=== PATIENT | female | born 1975 | race Caucasian/White ===

== ENCOUNTER 2017-09-12 21:37 | Observation (INO) | payer BC, SELFPAY ==
[2017-09-12 21:38] VITALS: BP 128/37; PULSE 95; RESP 15; TEMP 37.4; O2SAT 97; BMI 25.1
[2017-09-12 21:49] VITALS: O2SAT 98
[2017-09-12 22:13] VITALS: O2SAT 98
--- NOTE | 2017-09-12 22:13 | EKG12_ITS ---
Test Reason : CP Blood Pressure : / mmHG Vent. Rate : 078 BPM Atrial Rate : 077 BPM P-R Int : 000 ms QRS Dur : 088 ms QT Int : 390 ms P-R-T Axes : 000 026 004 degrees QTc Int : 444 ms Accelerated Junctional rhythm Abnormal ECG No previous ECGs available Confirmed by PAULINE CLIFTON, ZITA ([id number]), loan expeditor LLUVIA TESFAYE ([id number]) on 09/15/2017 9:43:56 AM Referred By: TRUNG Confirmed By:ZITA CARPENTER MD
--- NOTE | 2017-09-12 22:13 | RAD_ITS ---
STUDY: X-RAY CHEST REASON FOR EXAM: Female, 41 years old. Chest pain. TECHNIQUE: AP portable COMPARISON: None. FINDINGS: The lungs are mildly hyperinflated. There is no focal consolidation. Normal size heart. Normal mediastinum and kandice. Normal visualized pulmonary arteries. Normal visualized aortic arch and descending thoracic aorta. Normal visualized thoracic spine. Normal visualized ribs, clavicles, and shoulders. There is no demonstrated abnormality of the visualized soft tissue structures of the upper abdomen. RAD/Chest 1 View (Portable) IMPRESSION: Hyperinflated lungs may reflect underlying COPD. Electronically Signed: Lisa Barragan MD at 22:57 EDT Tel , Service support ,
--- NOTE | 2017-09-12 22:20 | ED.RN ---
NO OLD EKGS IN MUSE.
[2017-09-12] MEDS: Aspirin 81 MG TAB.CHEW 324 MG PO (22:21)
[2017-09-12 22:29] LABS: Absolute Neutrophil Count 4.8 X10^3/uL (2.0-7.7); Basophil# 0.03 X10^3/uL; Basophil% 0.4 % (0-1); Eosinophils% 2.5 % (0-5); Hematocrit 38.7 % (37-47); Lymphocyte % 26.6 % (19-41); Mean Corp Hgb Conc 33.6 g/gl (32-36); Mean Corpuscular Volume 86.4 fL (81-99); Mean Platelet Vol. 9.2 fl (6.2-12.0); Monocyte# 0.75 X10^3/uL; Monocyte% 9.5 % (0-10); Neutrophil # 4.81 X10^3/uL (2.7-7.7); Neutrophil % 60.9 % (47-70); Platelet Count 351 K/mm3 (150-450); RBC Distribution Width CV 14.4 % (11.6-14.6); RBC Distribution Width SD 44.9 fl (35.1-43.9); Red Blood Count 4.48 M/mm3 (4.2-5.4); White Blood Count 7.9 K/mm3 (4.4-11.0)
[2017-09-12 22:30] LABS: POSITIVE COUNT NO; POSITIVE DIFFERENTIAL NO; POSITIVE MORPHOLOGY NO
[2017-09-12 22:51] LABS: Anion Gap 8 (5-15); BUN 13 mg/dL (7-18); BUN/Creat Ratio 21.2 RATIO (10-20); Calcium,Total 8.4 mg/dL (8.5-10.1); Chloride 111 mmol/L (98-107); Creatinine, Serum 0.61 mg/dL (0.55-1.02); EST Glomerular Filtration Rate 113 mL/min (>60); Est Glom Filt Rate - Afr Amer 136 mL/min (>60); Estimated Creatinine Clearance 132.91 ml/min; Glucose 102 mg/dL (74-106); Potassium 3.9 mmol/L (3.5-5.1); Sodium Level 140 mmol/L (136-145); Thyroid Stim Hormone (TSH) 4.71 uIU/mL (0.358-3.74)
[2017-09-12 22:56] VITALS: PULSE 68; RESP 18; O2SAT 100
[2017-09-12 23:00] VITALS: PULSE 84; RESP 20; O2SAT 100
--- NOTE | 2017-09-12 23:35 | ED.VISSUMM ---
- ER Visit Summary Date of Service: 09/12/17 Chief Complaint: Chest pain History of Present Illness: The patient is a 41 F with chest pain today. Pain came on gradually. It radiates to her left chest and left upper extremity. Worse with exertion. She had some associated shortness of breath. She had an outpatient ECG and was scheduled for an outpatient echocardiogram and stress test 2 days from now. Patient denies any history of coronary disease. She thinks she has a history of high cholesterol. She denies any history of DVT or PE. She is a former smoker. Patient has a history of tremor, speech changes, and other neurologic symptoms. She has had a head CT, MRIs, and LP. Her workup did not reveal any answers 60 and she is following up soon as an outpatient with neurology. She is not having any new neurologic symptoms right now. Physical Examination: Vital signs unremarkable. Afebrile. Patient tearful but otherwise alert and oriented. HEENT exam unremarkable. Heart regular rate and rhythm. Lungs clear. Abdomen soft. Skin appears normal. Calves soft and supple. Pulses strong and equal. Test Results: EKG showed sinus rhythm at a rate of 100 with no sign of ischemia or infarction. CBC, BMP, troponin, TSH all unremarkable. COPD showed chronic changes but nothing acute. Emergency Department Course and Treatment: Patient has multiple medical complaints and ongoing issues. She is also tearful and very anxious. She presents today for chest pain with shortness of breath. This is her new symptom. I do not believe it is directly related to her neurologic symptoms. EKG, labs, chest x-ray all unremarkable. Patient received aspirin, morphine, and Zofran. WARREN 1, HEART 2. Given her continued pain and symptoms, I do not believe she should not wait for outpatient testing scheduled in 2 days. I spoke with the hospitalist to admit. Treatment Plan: As above Disposition: Admission Impression: 1. Chest pain This note was generated with [employer] dictation software. It may contain incorrect words, spelling, and punctuation that were not noted in review of the chart prior to signing ED Disposition - Plan for ED Patient: Chief Complaint: Chest Pain Referrals: [facility] Doctor,Out of [Primary Care Provider] -
[2017-09-12] MEDS: Morphine 4 MG/ML Syringe IV (23:54)
[2017-09-12] MEDS: Ondansetron 4 MG/2 ML Vial IV (23:55)
[2017-09-12 23:56] VITALS: BP 179/118; PULSE 76; RESP 18; O2SAT 100
[2017-09-13] VITALS (14 sets, daily range): BP systolic 97–148; BP diastolic 41–73; PULSE 66–82; RESP 16–20; TEMP 36.4–36.9; O2SAT 97–100; BMI 27.2
--- NOTE | 2017-09-13 | HP.PCM_ITS ---
Problem List (1) Chest pain Status: Acute (2) Hypothyroid Status: Acute History of Present Illness Date of Admission: 09/12/17 Chief Complaint: Chest pain The patient is a 41 year old female admitted for chest pain. She had chest pain a few days ago and has been evaluated by her PCP. She was arranged to have an ECHO and stress test outpt on Thursday. However, today she had sudden worsening of chest pain. Pain is substernal and sharp. Pain is worse with exertion. Pain is severe and episodic. The intensity and frequency of the pain have increased. Rest improved the pain. Pain also radiated to the back and down the left arm. She went to the ED for further evaluation of chest pain. She has h/o tremor and change in her voice. She has extensive workup at the [facility] and neurology. Workup includes CT, MRI and LPs. 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 Denies: Palpitations Respiratory: Denies: Cough, Shortness of breath at rest, Sputum production Gastrointestinal: Denies: Abdominal Pain, Nausea, Vomiting Genitourinary: Denies: Dysuria Musculoskeletal: Denies: Joint Pain, Joint Tenderness Skin: Denies: Rash, Wounds Neurological: Denies: Numbness, Tingling, Focal weakness Psychiatric: Denies: Anxiety, Depression, Homicidal Ideations, Suicidal Ideations Hematologic/ Lymphatic: Denies: Easy Bruising, Easy Bleeding VTE Information - Inpt Only VTE Present on Admission: No VTE Mechan Device Prophylaxis: SCD's VTE Pharm Prophylaxis ordered?: Yes Patient Problems: Active and Suspected Problems Chest pain (Acute) Hypothyroid (Acute) - Physical Exam General: Alert, Oriented x3, Cooperative HEENT: Atraumatic, PERRLA, EOMI, Normocephalic Neck: Supple, No JVD, Negative Carotid Bruits Lungs: Clear to auscultation, Normal air movement Cardiovascular: Regular rate, No murmurs Abdomen: Bowel Sounds Present, Soft, Non Tender Extremities: No edema, Capillary Refill Less than 3 Seconds Skin: No rashes, No breakdown Musculoskeletal: No Tenderness to Palpation of Joints or Extremities Neurological: Cranial nerves II-XII grossly intact Psych/Mental Status: Normal Affect, Appropriate Vital Signs Temp Pulse Resp BP Pulse Ox 99.3 F H 76 18 179/118 H 100 09/12/17 21:38 09/12/17 23:56 09/12/17 23:56 09/12/17 23:56 09/12/17 23:56 Oxygen Flow Rate (L/min) 2 Oxygen Delivery Method Nasal Cannula Weight: 81.647 kg Body Mass Index (BMI) 25.1 Laboratory Tests Past 24 Hrs 09/12/17 09/12/17 22:05 22:05 WBC 7.9 RBC 4.48 Hgb 13.0 Hct 38.7 MCV 86.4 MCH 29.0 MCHC 33.6 RDW 14.4 RDW Differential 44.9 H Plt Count 351 MPV 9.2 Immature Gran % (Auto) 0.100 Neut % (Auto) 60.9 Lymph % (Auto) 26.6 [place] % (Auto) 9.5 Eos % (Auto) 2.5 Baso % (Auto) 0.4 Absolute Neuts (auto) 4.8 Absolute Lymphs (auto) 2.10 Total Counted Not Reportable Sodium 140 Potassium 3.9 Chloride 111 H Carbon Dioxide 21.0 Anion Gap 8 BUN 13 Creatinine 0.61 Estim Creat Clear Calc 132.91 Est GFR (MDRD) Af Amer 136 Est GFR (MDRD) Non-Af 113 BUN/Creatinine Ratio 21.2 H Glucose 102 Calcium 8.4 L Troponin I < 0.015 TSH 4.71 H Assessment/Plan All Active Problems Chest pain (Acute) Hypothyroid (Acute) 41 year old female admitted for chest pain. 1) Chest pain: Heart score 2 Will get ECHO and stress test in AM. Serial trops. Will get FLP. Will start coreg, lipitor, and ASA. If persistent, especially if pain continues to radiate to the back and associated with back pain, may consider CTA to r/o dissection at that time. 2) Hypothyroid: TSH 4.4 Will start synthroid. 3) Prophylasix: SCD / heparin.
[2017-09-13] MEDS: 0.9% NaCl Peripheral Flush Adult/Peds IV ×4 (01:27→17:45)
[2017-09-13] MEDS: Morphine 4 MG/ML Syringe IV (03:37)
[2017-09-13 04:34] LABS: Amphetamine Urine VISTA NEGATIVE (<1000 ng/mL); Barbiturate Urine VISTA NEGATIVE (< 200 ng/mL); Benzodiazepine Urine VISTA NEGATIVE (< 200 ng/mL); Cocaine Urine VISTA NEGATIVE (< 300 ng/mL); Ecstacy Urine VISTA NEGATIVE (< 500 ng/mL); Methadone Urine VISTA NEGATIVE (< 300 ng/mL); PCP Urine VISTA NEGATIVE (< 25 ng/mL); THC Urine VISTA NEGATIVE (< 50 ng/mL); Vista UDS pH Range 6
[2017-09-13 04:57] LABS: Hemoglobin 12.3 g/dl (12.0-15.0); Mean Corp Hgb Conc 33.2 g/gl (32-36); Mean Corpuscular Hgb 29.4 pg (27.0-32.0); Mean Corpuscular Volume 88.5 fL (81-99); Mean Platelet Vol. 9.1 fl (6.2-12.0); Platelet Count 309 K/mm3 (150-450); RBC Distribution Width CV 14.5 % (11.6-14.6); RBC Distribution Width SD 46.5 fl (35.1-43.9); Red Blood Count 4.18 M/mm3 (4.2-5.4); White Blood Count 6.3 K/mm3 (4.4-11.0)
[2017-09-13 04:59] LABS: Scan Indicated on CBC? Y/N NO
[2017-09-13] MEDS: Levothyroxine 25 MCG TABLET PO (05:03)
[2017-09-13] MEDS: Heparin Injection (Vial) 5,000 UNIT/ML VIAL 5000 UNIT SC (05:03)
[2017-09-13 05:12] LABS: BNP,B-Type NATRIURETIC PEPTIDE 7.4 pg/mL (0-100)
[2017-09-13 05:26] LABS: D-Dimer Quantitative (DVT/PE) < 0.27 FEU/ug/m (0.27-0.49)
[2017-09-13 05:35] LABS: AST(SGOT) 11 U/L (15-37); Alanine Aminotransfer ALT/SGPT 22 U/L (13-56); Albumin, Serum 3.1 g/dL (3.2-5.0); Alkaline Phosphatase 62 U/L (45-117); Anion Gap 6 (5-15); BUN 14 mg/dL (7-18); BUN/Creat Ratio 23.8 RATIO (10-20); Calcium,Total 7.9 mg/dL (8.5-10.1); Chloride 112 mmol/L (98-107); Cholesterol 161 mg/dL (200); Creatinine, Serum 0.59 mg/dL (0.55-1.02); EST Glomerular Filtration Rate 118 mL/min (>60); Est Glom Filt Rate - Afr Amer 143 mL/min (>60); Estimated Creatinine Clearance 137.42 ml/min; Glucose 107 mg/dL (74-106); High Density Lipoprotein 56 mg/dL; Potassium 4.5 mmol/L (3.5-5.1); Protein, Total 6.1 g/dL (6.4-8.2); Sodium Level 145 mmol/L (136-145); Thyroid Stim Hormone (TSH) 4.13 uIU/mL (0.358-3.74); Triglycerides 49 mg/dL; Very Low Density Lipoprotein 10 mg/dL (5-40)
[2017-09-13 08:10] LABS: T4 Free Direct 1.17 ng/dL (0.76-1.46)
[2017-09-13] MEDS: HYDROcodone Bitartrate/Apap 5/325 Tablet PO ×3 (08:11→21:54)
[2017-09-13] MEDS: Ondansetron 4 MG/2 ML Vial IV (08:35)
[2017-09-13] MEDS: 0.9% Normal Saline 1,000 ML 100 ML IV ×2 (08:37→17:49)
[2017-09-13] MEDS: Aspirin E.C. 81 MG Tablet PO (08:37)
[2017-09-13] MEDS: Carvedilol 3.125 MG TABLET PO ×2 (08:37→21:52)
--- NOTE | 2017-09-13 10:52 | PCM.PROGNOTE ---
Patient Problems: Active and Suspected Problems Chest pain (Acute) Hypothyroid (Acute) Subjective: Patient seen and examined. She has multiple complaints on assessment. States she continues to have chest pain intermittently. She states nothing makes it better or worse. Patient states she has had ongoing symptoms including upper extremity tremors, weakness, headache, loss of voice, urinary incontinence. She states she has seen a neurologist at [facility] in [facility] for these issues. She states she has not had any official diagnosis. She states these initially occurred approximately a month ago and she is unable to work due to her symptoms. - Physical Exam General: Alert, Oriented x3, Cooperative HEENT: Atraumatic, PERRLA, EOMI, Normocephalic Neck: Supple, No JVD, Negative Carotid Bruits Lungs: Clear to auscultation, Normal air movement Cardiovascular: Regular rate, Regular Rhythm, Normal S1, Normal S2, No murmurs Abdomen: Bowel Sounds Present, Soft, Non Tender, Non-Distended Extremities: No clubbing, No cyanosis, No edema, Capillary Refill Less than 3 Seconds Skin: No rashes, No breakdown Musculoskeletal: No Tenderness to Palpation of Joints or Extremities Neurological: Cranial nerves II-XII grossly intact, Neuro grossly intact, - - Right upper extremity tremor noted. Psych/Mental Status: Restless Vital Signs Temp Pulse Resp BP Pulse Ox 97.9 F 82 20 H 108/50 L 99 09/13/17 08:15 09/13/17 08:15 09/13/17 08:15 09/13/17 08:15 09/13/17 08:15 Oxygen Flow Rate (L/min) 2 Oxygen Delivery Method Nasal Cannula Weight: 88.5 kg Body Mass Index (BMI) 27.2 Intake and Output for Last 24 Hours 09/11/17 09/12/17 09/13/17 23:59 23:59 23:59 Intake Total 100 / 100 Balance 100 / 100 Laboratory Tests Past 24 Hrs 09/13/17 09/13/17 09/13/17 01:07 03:20 04:31 WBC 6.3 RBC 4.18 L Hgb 12.3 Hct 37.0 MCV 88.5 MCH 29.4 MCHC 33.2 RDW 14.5 RDW Differential 46.5 H Plt Count 309 MPV 9.1 D-Dimer Quant (PE/DVT) Sodium Potassium Chloride Carbon Dioxide Anion Gap BUN Creatinine Estim Creat Clear Calc Est GFR (MDRD) Af Amer Est GFR (MDRD) Non-Af BUN/Creatinine Ratio Glucose Calcium Total Bilirubin AST ALT Alkaline Phosphatase Troponin I < 0.015 B-Natriuretic Peptide Total Protein Albumin Globulin Albumin/Globulin Ratio Triglycerides Cholesterol LDL Cholesterol VLDL Cholesterol HDL Cholesterol TSH Free T4 Urine Opiates Screen POSITIVE H Urine Methadone Screen NEGATIVE Ur Barbiturates Screen NEGATIVE Ur Phencyclidine Scrn NEGATIVE Ur Amphetamines Screen NEGATIVE U Methamphetamin-MDMA NEGATIVE U Benzodiazepines Scrn NEGATIVE Urine Cocaine Screen NEGATIVE U Cannabinoids Screen NEGATIVE Ur Drug Screen Comment 09/13/17 09/13/17 09/13/17 04:31 04:31 04:31 WBC RBC Hgb Hct MCV MCH MCHC RDW RDW Differential Plt Count MPV D-Dimer Quant (PE/DVT) < 0.27 L Sodium 145 Potassium 4.5 Chloride 112 H Carbon Dioxide 27.0 Anion Gap 6 BUN 14 Creatinine 0.59 Estim Creat Clear Calc 137.42 Est GFR (MDRD) Af Amer 143 Est GFR (MDRD) Non-Af 118 BUN/Creatinine Ratio 23.8 H Glucose 107 H Calcium 7.9 L Total Bilirubin 0.60 AST 11 L ALT 22 Alkaline Phosphatase 62 Troponin I B-Natriuretic Peptide 7.4 Total Protein 6.1 L Albumin 3.1 L Globulin 3.0 Albumin/Globulin Ratio 1.0 Triglycerides 49 Cholesterol 161 LDL Cholesterol 95 VLDL Cholesterol 10 HDL Cholesterol 56 TSH 4.13 H Free T4 Urine Opiates Screen Urine Methadone Screen Ur Barbiturates Screen Ur Phencyclidine Scrn Ur Amphetamines Screen U Methamphetamin-MDMA U Benzodiazepines Scrn Urine Cocaine Screen U Cannabinoids Screen Ur Drug Screen Comment 09/13/17 09/13/17 04:31 04:31 WBC RBC Hgb Hct MCV MCH MCHC RDW RDW Differential Plt Count MPV D-Dimer Quant (PE/DVT) Sodium Potassium Chloride Carbon Dioxide Anion Gap BUN Creatinine Estim Creat Clear Calc Est GFR (MDRD) Af Amer Est GFR (MDRD) Non-Af BUN/Creatinine Ratio Glucose Calcium Total Bilirubin AST ALT Alkaline Phosphatase Troponin I < 0.015 B-Natriuretic Peptide Total Protein Albumin Globulin Albumin/Globulin Ratio Triglycerides Cholesterol LDL Cholesterol VLDL Cholesterol HDL Cholesterol TSH Free T4 1.17 Urine Opiates Screen Urine Methadone Screen Ur Barbiturates Screen Ur Phencyclidine Scrn Ur Amphetamines Screen U Methamphetamin-MDMA U Benzodiazepines Scrn Urine Cocaine Screen U Cannabinoids Screen Ur Drug Screen Comment Medical Necessity - Tobacco Use Smoking Status: Former smoker Assessment/Plan All Active Problems Chest pain (Acute) Hypothyroid (Acute) Patient is a 41-year-old female admitted 09/12/2017 due to chest pain. She has no previous medical history and is not on any daily medications. 1. Chest pain-troponin negative. Patient was scheduled for stress test and echocardiogram by her primary care physician. She came to the hospital beforehand due to continued chest pain. EKG without evidence of ischemia. Stress test and echocardiogram in a.m. 2. Multiple neurologic complaints-patient has been seen at multiple different facilities and by 2 different neurologist over the past month for multiple complaints including neck pain, headaches, numbness and tingling of bilateral extremities, bilateral upper extremity tremors, weakness, urinary incontinence. Records reviewed at outside facilities via [facility]. Initially saw a neurologist at [facility] followed by a neurologist at [facility], Dr. Moreno. Progress notes by Dr. Moreno reviewed who suggested a psychogenic etiology of symptoms. He did refer her to a movement specialist for tremors. She was diagnosed with Montilla's palsy at some point in the past month for mouth droop and was placed on prednisone. She states this has resolved. Per outside facility reports, patient had spinal tap which showed spinal fluid protein of 171.5 with only 4 white cells. No other abnormalities identified. Patient has had multiple imaging including CT and MRIs which did not show any evidence explaining etiology of her symptoms. MRI of brain 08/25/2017 showed normal MRI of the brain. MRI of lumbar spine 08/26/2017 showed multilevel degenerative changes, generally mild and without stenosis. Mild posterior disc bulges with slight superimposed central extrusion at L2-L3, L3-L4 and L4-L5. Most prominent at L4-L5 where there was a noted 9 mm extrusion extending above the disc space in the midline. None of these extrusions appear to significantly impinge any of the descending or exiting nerve roots. Mild lateral recess and left neural foraminal narrowing at L4-L5. MRI of cervical spine 08/26/2017 showed slight reversal of the upper cervical lordosis. Individual vertebral bodies intact. Mild disc desiccation and disc space narrowing, mainly at C5-C6. No abnormality noted within the cervical spinal cord. Overall, very mild degenerative disc and uncovertebral disease, no stenosis at any level. PT/OT eval. consult neurology for further recommendations although I do suspect this is psychogenic in nature. Behavioral health consult. 3. Subclinical hypothyroidism-TSH 4.1. Free T4 1.1. Do not recommend Synthroid at this time. Recommend outpatient follow-up. DVT prophylaxis-Lovenox subcu. This patient was seen by MILLICENT Figueroa under the supervision of Dr. Mays.
[2017-09-13 12:02] LABS: Magnesium 2.2 mg/dL (1.6-2.6)
[2017-09-13] MEDS: Ketorolac 15 MG/ML Vial IV (17:45)
[2017-09-13] MEDS: Atorvastatin Calcium 20 MG Tablet PO (21:52)
[2017-09-14 03:21] VITALS: PULSE 68
[2017-09-14] MEDS: 0.9% Normal Saline 1,000 ML 100 ML IV (03:46)
[2017-09-14 03:50] VITALS: BP 118/86; PULSE 75; RESP 16; TEMP 36.4; O2SAT 95
[2017-09-14] MEDS: HYDROcodone Bitartrate/Apap 5/325 Tablet PO (03:54)
[2017-09-14 05:36] LABS: Absolute Lymphocyte Count 1.31 X10^3/ul (0.83-4.51); Absolute Neutrophil Count 3.1 X10^3/uL (2.0-7.7); Basophil# 0.03 X10^3/uL; Basophil% 0.6 % (0-1); Eosinophil# 0.15 X10^3/uL; Hematocrit 36.9 % (37-47); Lymphocyte # 1.31 X10^3/ul (4.0); Lymphocyte % 25.9 % (19-41); Mean Corp Hgb Conc 32.5 g/gl (32-36); Mean Corpuscular Hgb 29.1 pg (27.0-32.0); Mean Corpuscular Volume 89.3 fL (81-99); Monocyte# 0.46 X10^3/uL; Monocyte% 9.1 % (0-10); Neutrophil # 3.09 X10^3/uL (2.7-7.7); Neutrophil % 61.2 % (47-70); Platelet Count 303 K/mm3 (150-450); RBC Distribution Width CV 14.2 % (11.6-14.6); RBC Distribution Width SD 46.1 fl (35.1-43.9); Red Blood Count 4.13 M/mm3 (4.2-5.4); White Blood Count 5.1 K/mm3 (4.4-11.0)
[2017-09-14 05:38] LABS: Prothrombin Time (Protime)PT. 13.1 SECONDS (11.7-14.9)
[2017-09-14 05:39] LABS: Partial Thromboplast Time 26.9 Seconds (24.1-36.2)
[2017-09-14] MEDS: Aspirin E.C. 81 MG Tablet PO (05:46)
[2017-09-14 05:55] LABS: Anion Gap 6 (5-15); BUN 12 mg/dL (7-18); Calcium,Total 8.2 mg/dL (8.5-10.1); Chloride 109 mmol/L (98-107); Creatinine, Serum 0.52 mg/dL (0.55-1.02); EST Glomerular Filtration Rate 136 mL/min (>60); Est Glom Filt Rate - Afr Amer 165 mL/min (>60); Estimated Creatinine Clearance 155.92 ml/min; Glucose 95 mg/dL (74-106); Potassium 4.6 mmol/L (3.5-5.1); Sodium Level 144 mmol/L (136-145)
--- NOTE | 2017-09-14 05:55 | EKG12_ITS ---
Test Reason : AM EKG Blood Pressure : / mmHG Vent. Rate : 076 BPM Atrial Rate : 076 BPM P-R Int : 140 ms QRS Dur : 090 ms QT Int : 396 ms P-R-T Axes : 047 032 027 degrees QTc Int : 445 ms Normal sinus rhythm Normal ECG When compared with ECG of 13-SEP-2017 01:17, MANUAL COMPARISON REQUIRED, DATA IS UNCONFIRMED Confirmed by PAULINE CLIFTON, ZITA ([id number]), proposal editor LLUVIA TESFAYE ([id number]) on 09/15/2017 9:46:32 AM Referred By: DR ECHEVARRIA Confirmed By:ZITA CARPENTER MD
[2017-09-14 06:14] VITALS: PULSE 63
[2017-09-14 06:26] LABS: POSITIVE COUNT NO; POSITIVE DIFFERENTIAL NO; POSITIVE MORPHOLOGY NO
[2017-09-14 09:15] VITALS: BP 104/48; PULSE 71; RESP 16; TEMP 36.6; O2SAT 97
[2017-09-14] MEDS: Acetaminophen 325 MG Tablet 650 MG PO (09:22)
[2017-09-14] MEDS: Ondansetron 4 MG/2 ML Vial IV (09:23)
[2017-09-14] MEDS: Carvedilol 3.125 MG TABLET PO (09:23)
--- NOTE | 2017-09-14 10:08 | CON.PCM_ITS ---
Reason for Consult History of Present Illness: The patient is a 41 year old F right handed with multple complaints including tingling, headaches, speech abnormalities, insomnia. reports had abnormal spinal tap (elevated protein as below). seeing Dr Alexis Moreno in [facility] , having another LP on thursday, two days from now. reports tremor in left arm startedd 2.[address] Moreno aware. report hot tub helps. quit tob 1.5 months ago. denies etoh and drugs. per hospitalists notes:Multiple neurologic complaints-patient has been seen at multiple different facilities and by 2 different neurologist over the past month for multiple complaints including neck pain, headaches, numbness and tingling of bilateral extremities, bilateral upper extremity tremors, weakness, urinary incontinence. Records reviewed at outside facilities via [facility]. Initially saw a neurologist at [place] followed by a neurologist at [facility], Dr. Moreno. Progress notes by Dr. Moreno reviewed who suggested a psychogenic etiology of symptoms. He did refer her to a movement specialist for tremors. She was diagnosed with Montilla's palsy at some point in the past month for mouth droop and was placed on prednisone. She states this has resolved. Per outside facility reports, patient had spinal tap which showed spinal fluid protein of 171.5 with only 4 white cells. No other abnormalities identified. Patient has had multiple imaging including CT and MRIs which did not show any evidence explaining etiology of her symptoms. MRI of brain 2017 showed normal MRI of the brain. MRI of lumbar spine 08/26/2017 showed multilevel degenerative changes, generally mild and without stenosis. Mild posterior disc bulges with slight superimposed central extrusion at L2-L3, L3- L4 and L4-L5. Most prominent at L4-L5 where there was a noted 9 mm extrusion extending above the disc space in the midline. None of these extrusions appear to significantly impinge any of the descending or exiting nerve roots. Mild lateral recess and left neural foraminal narrowing at L4-L5. MRI of cervical spine 08/26/2017 showed slight reversal of the upper cervical lordosis. Individual vertebral bodies intact. Mild disc desiccation and disc space narrowing, mainly at C5-C6. No abnormality noted within the cervical spinal cord. Overall, very mild degenerative disc and uncovertebral disease, no stenosis at any level. PT/OT eval. consult neurology for further recommendations although I do suspect this is psychogenic in nature. Behavioral health consult. 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 Denies: Cough Gastrointestinal: Reports: Nausea, Vomiting. Denies: Abdominal Pain, Constipation, Diarrhea Genitourinary: Reports: Incontinence Musculoskeletal: Reports: Arm Pain, Foot Pain, Leg Pain, Neck Pain, Shoulder Pain Skin: Denies: Rash, Wounds Neurological: Reports: Balance problems, Change in Speech, Headaches, Tremor. Denies: Difficulty swallowing, Seizures Psychiatric: Denies: Anxiety, Depression, Homicidal Ideations, Suicidal Ideations Patient Problems: Active and Suspected Problems Chest pain (Acute) Hypothyroid (Acute) - Physical Exam General: Alert, Oriented x3, Cooperative, Well developed, Well nourished HEENT: Atraumatic, PERRLA, EOMI, Normocephalic Lungs: Clear to auscultation, Normal air movement Cardiovascular: Regular rate, No murmurs Abdomen: Bowel Sounds Present, Soft, Non Tender, Non-Distended Musculoskeletal: No Tenderness to Palpation of Joints or Extremities Vital Signs Temp Pulse Resp BP Pulse Ox 36.6 C 71 16 104/48 L 97 09/14/17 09:15 09/14/17 09:15 09/14/17 09:15 09/14/17 09:15 09/14/17 09:15 Oxygen Flow Rate (L/min) 2 Oxygen Delivery Method Room Air Weight: 88.5 kg Body Mass Index (BMI) 27.2 Intake and Output for Last 24 Hours 09/12/17 09/13/17 09/14/17 23:59 23:59 23:59 Intake Total 968 / 968 1173 / 1173 Balance 968 / 968 1173 / 1173 Laboratory Tests Past 24 Hrs 09/13/17 09/14/1709/14/18 04:31 05:10 05:10 WBC 5.1 RBC 4.13 L Hgb 12.0 Hct 36.9 L MCV 89.3 MCH 29.1 MCHC 32.5 RDW 14.2 RDW Differential 46.1 H Plt Count 303 MPV 9.0 Immature Gran % (Auto) 0.200 Neut % (Auto) 61.2 Lymph % (Auto) 25.9 [place] % (Auto) 9.1 Eos % (Auto) 3.0 Baso % (Auto) 0.6 Absolute Neuts (auto) 3.1 Absolute Lymphs (auto) 1.31 Total Counted Not Reportable PT 13.1 INR 1.0 APTT 26.9 Sodium Potassium Chloride Carbon Dioxide Anion Gap BUN Creatinine Estim Creat Clear Calc Est GFR (MDRD) Af Amer Est GFR (MDRD) Non-Af BUN/Creatinine Ratio Glucose Calcium Magnesium 2.2 09/14/17 05:10 WBC RBC Hgb Hct MCV MCH MCHC RDW RDW Differential Plt Count MPV Immature Gran % (Auto) Neut % (Auto) Lymph % (Auto) [place]hea % (Auto) Eos % (Auto) Baso % (Auto) Absolute Neuts (auto) Absolute Lymphs (auto) Total Counted PT INR APTT Sodium 144 Potassium 4.6 Chloride 109 H Carbon Dioxide 29.0 Anion Gap 6 BUN 12 Creatinine 0.52 L Estim Creat Clear Calc 155.92 Est GFR (MDRD) Af Amer 165 Est GFR (MDRD) Non-Af 136 BUN/Creatinine Ratio 23.0 H Glucose 95 Calcium 8.2 L Magnesium Current Home Med List Medication Instructions Recorded Confirmed Type NK [NK] 09/12/17 09/12/17 History takes ibuprofen 4x day at home Current Medications Generic Name Dose Route Start Last Admin Trade Name Freq PRN Reason Stop Dose Admin Acetaminophen 650 mg 09/13/17 07:34 09/14/17 09:22 Tylenol PO 650 mg Q6H PRN PRN Administration Non-cardiac pain (mod-severe) Hydrocodone Bitart/Acetaminophen 1 - 2 tablet 09/13/17 07:34 09/14/17 03:54 Alice 5mg-325mg PO 2 tablet Q6H PRN PRN Administration Moderate-severe pain Aspirin 81 mg 09/13/17 08:00 09/14/17 05:46 Ecotrin PO 81 mg DAILY@0800 [facility] Administration Atorvastatin Calcium 20 mg 09/13/17 22:00 09/13/17 21:52 Lipitor PO 20 mg QHS [facility] Administration Carvedilol 3.125 mg 09/13/17 10:00 09/14/17 09:23 Coreg PO 3.125 mg BID EMILY Administration Enoxaparin Sodium 40 mg 09/13/17 07:34 09/14/17 05:47 Lovenox SC Not Given DAILY@0600 [facility] Hydralazine HCl 10 mg 09/13/17 07:34 Apresoline Iv IV Q4H PRN PRN SBP > 160 Sodium Chloride 1,000 mls @ 100 mls/hr 09/13/17 23:55 09/14/17 10:38 IV Not Given .Q10H [facility] Morphine Sulfate 4 mg 09/13/17 00:54 09/13/17 03:37 IV 4 mg Q4H PRN PRN Administration SEVERE PAIN (6-10/10) Nitroglycerin 0.4 mg 09/13/17 07:34 Nitrostat SUBLINGUAL Q5M PRN Angina pain Nutritional Formula (Lactose Free) 120 ml 09/13/17 10:00 09/14/17 09:19 Ensure Enlive PO Not Given 4X/DAY [facility] Ondansetron HCl 4 mg 09/13/17 07:34 09/14/17 09:23 Zofran IV 4 mg Q8H PRN PRN Administration NAUSEA/VOMITING Sodium Chloride 5 - 30 ml 09/13/17 01:35 09/13/17 17:45 IV 10 ml UD PRN Administration SALINE FLUSH Assessment/Plan All Active Problems Chest pain (Acute) Hypothyroid (Acute) multpile nonspecific complaints: extensive workup negative, current exam nonphysiologic denies stress or depression however this does appear consistent with conversion disorder. offer ssri agrees to lexapro agree with dc if otherwise stable, followup with dr moreno limit nsaids
--- NOTE | 2017-09-14 10:39 | STRESSREP ---
Stress Test Report Pharmacologic myocardial perfusion stress test. 41-year-old lady with a history of chest pain. Stress protocol: Resting EKG demonstrates normal sinus rhythm with a rate of 75 bpm normal intervals and noted resting blood pressure is 118/90 mmHg. 0.4 mg of regadenoson was infused per usual protocol followed by rapid intravenous saline flush injection continuous EKG monitoring was performed. The patient maintained sinus rhythm throughout the recording. At rest there were no ST or T-wave changes noted suggest abnormal flow reserve at peak infusion no ST or T-wave changes were noted suggest abnormal flow reserve. The resting blood pressure was 118/90 with a final blood pressure 120/90 mmHg. Myocardial perfusion protocol. 14.1 mCi of technetium 99m sestamibi was injected. 0.4 mg regadenoson was infused per usual protocol peak infusion 43.9 mCi of technetium 99m sestamibi was injected stress images were obtained stress and rest images were reconstructed and compared in the short axis vertical long and horizontal long axis. Gated images were also obtained Perfusion SPECT analysis: Review of the stress images demonstrate normal uptake of tracer noted in all areas of myocardium except for the anterior wall with mildly reduced perfusion on the stress and resting images to a similar extent. The above is most likely secondary to breast wall attenuation. No obvious ischemia is noted and no previous infarct is present. Gated SPECT analysis: The gated ejection fraction is noted to be 61%. Conclusion: Probably normal pharmacologic myocardial perfusion stress test. Anterior breast wall attenuation suspected. Preserved ejection fraction
--- NOTE | 2017-09-14 10:42 | STRESSREP_ITS ---
Stress Test Report Pharmacologic myocardial perfusion stress test. 41-year-old lady with a history of chest pain. Stress protocol: Resting EKG demonstrates normal sinus rhythm with a rate of 75 bpm normal intervals and noted resting blood pressure is 118/90 mmHg. 0.4 mg of regadenoson was infused per usual protocol followed by rapid intravenous saline flush injection continuous EKG monitoring was performed. The patient maintained sinus rhythm throughout the recording. At rest there were no ST or T -wave changes noted suggest abnormal flow reserve at peak infusion no ST or T- wave changes were noted suggest abnormal flow reserve. The resting blood pressure was 118/90 with a final blood pressure 120/90 mmHg. Myocardial perfusion protocol. 14.1 mCi of technetium 99m sestamibi was injected. 0.4 mg regadenoson was infused per usual protocol peak infusion 43.9 mCi of technetium 99m sestamibi was injected stress images were obtained stress and rest images were reconstructed and compared in the short axis vertical long and horizontal long axis. Gated images were also obtained Perfusion SPECT analysis: Review of the stress images demonstrate normal uptake of tracer noted in all areas of myocardium except for the anterior wall with mildly reduced perfusion on the stress and resting images to a similar extent. The above is most likely secondary to breast wall attenuation. No obvious ischemia is noted and no previous infarct is present. Gated SPECT analysis: The gated ejection fraction is noted to be 61%. Conclusion: Probably normal pharmacologic myocardial perfusion stress test. Anterior breast wall attenuation suspected. Preserved ejection fraction
[2017-09-14 11:02] VITALS: PULSE 79
--- NOTE | 2017-09-14 11:25 | DCINST_ITS ---
- Discharge Diagnoses Current Active Problems: Current Active and Chronic Problems Chest pain (Acute) You will use the following diet at home:: No restrictions Discharge Activity: Return to Normal Activity Call your doctor if you observe: Shortness of breath, Dizziness, Fainting spells , Chest pain Additional Instructions: Please choose a neurologist to follow-up with. You may follow-up with Dr. Candelario or one of the previous neurologist you have seen in the past. Follow-up in 4-6 weeks. Allergies/Adverse Reactions: Allergies No Known Allergies Allergy (Verified 09/12/17 21:42) Medications to take at Discharge NK [NK] 09/12/17 Primary Care Physician: Elvis Fuentes,Out of [Primary Care Provider] - Please follow up with your Primary Care Physician in: 1 Week Please Follow Up With: Ramu Candelario MD When: 4-6 Weeks Proposed Discharge Date: 09/14/17
[2017-09-14] MEDS: Escitalopram Oxalate 10 MG Tablet PO (11:57)
--- NOTE | 2017-09-14 12:22 | PCM.DC.SUM ---
<Cassidy Roman - Last Filed: 09/14/17 12:43> Discharge Date and Diagnosis Date of Admission: 09/12/17 Date of Discharge: 09/14/17 - Primary Discharge Diagnosis Active and Suspected Problems 1. Non-cardiac chest pain 2. Possible conversion disorder 3. Subclinical hypothyroidism Hospital Course and Treatment Imaging Results: Diagnostic Data Chest X-Ray 09/12/17 22:13 IMPRESSION: Hyperinflated lungs may reflect underlying COPD. Electronically Signed: Lisa Barragan MD at 22:57 EDT Tel , Service support , Consultations 09/14/17 10:33 Consult: Mental Health/Crisis Routine Reason for consult?: psychogenic s/sx, consult: behavioral health Date Notified:: 09/14/17 Time notified:: 10:34 Dr. Candelario- Neurology Operations: None Procedures: Stress test Summary of Care Provided: Patient is a 41-year-old female admitted 09/12/2017 due to chest pain. She has no previous medical history and is not on any daily medications. 1. Chest pain-ACS ruled out. Troponin negative. EKG without evidence of ischemia. Stress test negative for ischemia. 2. Multiple neurologic complaints-patient has been seen at multiple different facilities and by 2 different neurologist over the past month for multiple complaints including neck pain, headaches, numbness and tingling of bilateral extremities, bilateral upper extremity tremors, weakness, urinary incontinence. Records reviewed at outside facilities via [employer]. Initially saw a neurologist at [facility] followed by a neurologist at [facility], Dr. Moreno. Progress notes by Dr. Moreno reviewed who suggested a psychogenic etiology of symptoms. He did refer her to a movement specialist for tremors. She was diagnosed with Montilla's palsy at some point in the past month for mouth droop and was placed on prednisone. She states this has resolved. Per outside facility reports, patient had spinal tap which showed spinal fluid protein of 171.5 with only 4 white cells. No other abnormalities identified. Patient has had multiple imaging including CT and MRIs which did not show any evidence explaining etiology of her symptoms. MRI of brain 08/25/2017 showed normal MRI of the brain. MRI of lumbar spine 08/26/2017 showed multilevel degenerative changes, generally mild and without stenosis. Mild posterior disc bulges with slight superimposed central extrusion at L2-L3, L3-L4 and L4-L5. Most prominent at L4-L5 where there was a noted 9 mm extrusion extending above the disc space in the midline. None of these extrusions appear to significantly impinge any of the descending or exiting nerve roots. Mild lateral recess and left neural foraminal narrowing at L4-L5. MRI of cervical spine 08/26/2017 showed slight reversal of the upper cervical lordosis. Individual vertebral bodies intact. Mild disc desiccation and disc space narrowing, mainly at C5-C6. No abnormality noted within the cervical spinal cord. Overall, very mild degenerative disc and uncovertebral disease, no stenosis at any level. Neurology and behavioral health consulted during admission. Neurology suspects patient's has conversion disorder. She was started on Lexapro. Recommend continued outpatient follow-up with neurologist at [facility], Dr. Moreno. Behavioral health assessed patient and she was not open to outpatient counseling. She did not feel her symptoms are psychiatric related. She was given resources if she chooses to follow-up as outpatient. 3. Subclinical hypothyroidism-TSH 4.1. Free T4 1.1. Do not recommend Synthroid at this time. Recommend outpatient follow-up. General: Alert, Oriented x3, Cooperative HEENT: Atraumatic, PERRLA, EOMI, Normocephalic Neck: Supple, No JVD, Negative Carotid Bruits Lungs: Clear to auscultation, Normal air movement Cardiovascular: Regular rate, Regular Rhythm, Normal S1, Normal S2, No murmurs Abdomen: Bowel Sounds Present, Soft, Non Tender, Non-Distended Extremities: No clubbing, No cyanosis, No edema, Capillary Refill Less than 3 Seconds Skin: No rashes, No breakdown Musculoskeletal: No Tenderness to Palpation of Joints or Extremities Neurological: Cranial nerves II-XII grossly intact, Neuro grossly intact, - - Right upper extremity tremor noted. Psych/Mental Status: Restless Patient seen exam prior to discharge. Physical assessment as above. Patient stable for discharge home with the follow-up recommendations as noted above. This patient was seen by MILLICENT Figueroa under the supervision of Dr. Lei. Discharge Diet: No Restrictions Discharge Activity: Return to Normal Activity Call your doctor if you observe: Shortness of breath, Dizziness, Fainting spells, Chest pain Home Medications: Medications to take at Discharge Escitalopram Oxalate [Lexapro] 10 mg PO DAILY #30 tab 09/14/17 Following Prescrptions Were Given to Patient: Escitalopram Oxalate [Lexapro] 10 mg PO DAILY #30 tab Primary Care Physician: Elvis Fuentes,Out of [Primary Care Provider] - Please follow up with your Primary Care Physician in: 1 Week Please Follow Up With: Ramu Candelario MD When: 4-6 Weeks Disposition: Home Minutes spent on discharge:: 35 Patient Condition:: Stable Medical Necessity - Tobacco Use Smoking Status: Former smoker Meaningful Use Info Meaningful Use Diagnoses (Choose all that apply): None applicable <[place] - Last Filed: 09/14/17 13:34> Hospital Course and Treatment Imaging Results: 09/14/17 05:55 Nuclear Stress Test - Chemical [NM] Routine Consultations 09/14/17 10:33 Consult: Mental Health/Crisis Routine Reason for consult?: psychogenic s/sx, consult: behavioral health Date Notified:: 09/14/17 Time notified:: 10:34 Summary of Care Provided: The patient is a 41 year old F [] Code Visit Inpatient E&M: 95034 Disch Hosp
--- NOTE | 2017-09-14 12:37 | DS.PCM_ITS ---
<Cassidy Roman - Last Filed: 09/14/17 12:43> Discharge Date and Diagnosis Date of Admission: 09/12/17 Date of Discharge: 09/14/17 - Primary Discharge Diagnosis Active and Suspected Problems 1. Non-cardiac chest pain 2. Possible conversion disorder 3. Subclinical hypothyroidism Hospital Course and Treatment Imaging Results: Diagnostic Data Chest X-Ray 09/12/17 22:13 IMPRESSION: Hyperinflated lungs may reflect underlying COPD. Electronically Signed: Lisa Barragan MD at 22:57 EDT Tel , Service support , Consultations 09/14/17 10:33 Consult: Mental Health/Crisis Routine Reason for consult?: psychogenic s/sx, consult: behavioral health Date Notified:: 09/14/17 Time notified:: 10:34 Dr. Candelario- Neurology Operations: None Procedures: Stress test Summary of Care Provided: Patient is a 41-year-old female admitted 09/12/2017 due to chest pain. She has no previous medical history and is not on any daily medications. 1. Chest pain-ACS ruled out. Troponin negative. EKG without evidence of ischemia. Stress test negative for ischemia. 2. Multiple neurologic complaints-patient has been seen at multiple different facilities and by 2 different neurologist over the past month for multiple complaints including neck pain, headaches, numbness and tingling of bilateral extremities, bilateral upper extremity tremors, weakness, urinary incontinence. Records reviewed at outside facilities via [employer]. Initially saw a neurologist at [facility] followed by a neurologist at [facility], Dr. Moreno. Progress notes by Dr. Moreno reviewed who suggested a psychogenic etiology of symptoms. He did refer her to a movement specialist for tremors. She was diagnosed with Montilla's palsy at some point in the past month for mouth droop and was placed on prednisone. She states this has resolved. Per outside facility reports, patient had spinal tap which showed spinal fluid protein of 171.5 with only 4 white cells. No other abnormalities identified. Patient has had multiple imaging including CT and MRIs which did not show any evidence explaining etiology of her symptoms. MRI of brain 2017 showed normal MRI of the brain. MRI of lumbar spine 08/26/2017 showed multilevel degenerative changes, generally mild and without stenosis. Mild posterior disc bulges with slight superimposed central extrusion at L2-L3, L3- L4 and L4-L5. Most prominent at L4-L5 where there was a noted 9 mm extrusion extending above the disc space in the midline. None of these extrusions appear to significantly impinge any of the descending or exiting nerve roots. Mild lateral recess and left neural foraminal narrowing at L4-L5. MRI of cervical spine 08/26/2017 showed slight reversal of the upper cervical lordosis. Individual vertebral bodies intact. Mild disc desiccation and disc space narrowing, mainly at C5-C6. No abnormality noted within the cervical spinal cord. Overall, very mild degenerative disc and uncovertebral disease, no stenosis at any level. Neurology and behavioral health consulted during admission. Neurology suspects patient's has conversion disorder. She was started on Lexapro. Recommend continued outpatient follow-up with neurologist at [facility], Dr. Moreno. Behavioral health assessed patient and she was not open to outpatient counseling. She did not feel her symptoms are psychiatric related. She was given resources if she chooses to follow-up as outpatient. 3. Subclinical hypothyroidism-TSH 4.1. Free T4 1.1. Do not recommend Synthroid at this time. Recommend outpatient follow-up. General: Alert, Oriented x3, Cooperative HEENT: Atraumatic, PERRLA, EOMI, Normocephalic Neck: Supple, No JVD, Negative Carotid Bruits Lungs: Clear to auscultation, Normal air movement Cardiovascular: Regular rate, Regular Rhythm, Normal S1, Normal S2, No murmurs Abdomen: Bowel Sounds Present, Soft, Non Tender, Non-Distended Extremities: No clubbing, No cyanosis, No edema, Capillary Refill Less than 3 Seconds Skin: No rashes, No breakdown Musculoskeletal: No Tenderness to Palpation of Joints or Extremities Neurological: Cranial nerves II-XII grossly intact, Neuro grossly intact, - - Right upper extremity tremor noted. Psych/Mental Status: Restless Patient seen exam prior to discharge. Physical assessment as above. Patient stable for discharge home with the follow-up recommendations as noted above. This patient was seen by MILLICENT Figueroa under the supervision of Dr. Lei. Discharge Diet: No Restrictions Discharge Activity: Return to Normal Activity Call your doctor if you observe: Shortness of breath, Dizziness, Fainting spells , Chest pain Home Medications: Medications to take at Discharge Escitalopram Oxalate [Lexapro] 10 mg PO DAILY #30 tab 09/14/17 Following Prescrptions Were Given to Patient: Escitalopram Oxalate [Lexapro] 10 mg PO DAILY #30 tab Primary Care Physician: Elvis Fuentes,Out of [Primary Care Provider] - Please follow up with your Primary Care Physician in: 1 Week Please Follow Up With: Ramu Candelario MD When: 4-6 Weeks Disposition: Home Minutes spent on discharge:: 35 Patient Condition:: Stable Medical Necessity - Tobacco Use Smoking Status: Former smoker Meaningful Use Info Meaningful Use Diagnoses (Choose all that apply): None applicable <[place] - Last Filed: 09/14/17 13:34> Hospital Course and Treatment Imaging Results: 09/14/17 05:55 Nuclear Stress Test - Chemical [NM] Routine Consultations 09/14/17 10:33 Consult: Mental Health/Crisis Routine Reason for consult?: psychogenic s/sx, consult: behavioral health Date Notified:: 09/14/17 Time notified:: 10:34 Summary of Care Provided: The patient is a 41 year old F [] Code Visit Inpatient E&M: 94624 Disch Hosp
--- NOTE | 2017-09-14 13:21 | BH.NOTE ---
: Inpatient Note - Notes Behavioral Health Inpatient Note: 09/14/17 13:[address] [facility] due to MH symptoms possibly exacerbating medical symptoms. Please refer to chart regarding documentation related to possible conversion disorder. Met with pt in her room. Pt denies any hx of psychiatric treatment. Alert and oriented. Cooperative. Denies any suicidal ideations, plan, intent, or hx of attempts. Pt verbalized frustration as she has been to numerous specialists and nobody can tell me what is causing my issues. Defensive at times stating who sent you and this is not in my head. She was able to identify that stress and worry could exacerbate her medical issues. Some insight into the benefits of counseling to help cope with her frustrations. Currently on disability from work due to her medical symptoms. Reports family is supportive however frustrated as well. Reports upcoming appointment with her neurologist Dr. Moreno at [facility] whom she trusts. After talking with pt she was agreeable to discussing etiology of psychosomatic symptoms and the role of MH in her symptoms with her outpatient neurologist. Reports that if he recommended any further counseling or a psychiatric evaluation she would follow through. She was given resources to MH providers on her area.
== END 2017-09-14 11:24 | disposition home or self-care (01) ==
LOC: ED 22:18 → PCU 09-13 00:13
PROVIDERS: Family Medicine; Admitting Provider Internal Medicine; Emergency Provider Emergency Medicine; Visit Provider Internal Medicine
DX: R07.89 Other chest pain (principal); R06.02 Shortness of breath; E78.00 Pure hypercholesterolemia, unspecified; Z87.891 Personal history of nicotine dependence; R25.1 Tremor, unspecified; E03.9 Hypothyroidism, unspecified; R47.9 Unspecified speech disturbances; M54.2 Cervicalgia; R20.0 Anesthesia of skin; R32 Unspecified urinary incontinence
CPT/HCPCS: 36415; 71045; 78452; 80048; 80053; 80061; 80307; 83735; 83880; 84439; 84443; 84484; 85025; 85027; 85379; 85610; 85730; 93005; 93017; 96361; 96372; 96374; 96375; 96376; 97802; 99218; 99284; 99406; A9500; J7030; A4216; G0378; J2405; J2785

== ENCOUNTER 2017-11-04 17:47 | Emergency (ER) | payer BC, SELFPAY ==
[2017-11-04 17:48] VITALS: BP 118/88; PULSE 102; RESP 20; TEMP 36.6; O2SAT 98; BMI 27.8
[2017-11-04 18:33] LABS: Absolute Neutrophil Count 3.9 X10^3/uL (2.0-7.7); Basophil# 0.02 X10^3/uL; Basophil% 0.3 % (0-1); Eosinophil# 0.05 X10^3/uL; Eosinophils% 0.7 % (0-5); Hematocrit 40.9 % (37-47); Hemoglobin 13.3 g/dl (12.0-15.0); Lymphocyte % 36.2 % (19-41); Mean Corp Hgb Conc 32.5 g/gl (32-36); Mean Corpuscular Hgb 28.9 pg (27.0-32.0); Mean Corpuscular Volume 88.7 fL (81-99); Mean Platelet Vol. 8.9 fl (6.2-12.0); Monocyte# 0.46 X10^3/uL; Monocyte% 6.7 % (0-10); Neutrophil # 3.87 X10^3/uL (2.7-7.7); Platelet Count 373 K/mm3 (150-450); RBC Distribution Width CV 14.2 % (11.6-14.6); RBC Distribution Width SD 46.2 fl (35.1-43.9); Red Blood Count 4.61 M/mm3 (4.2-5.4); White Blood Count 6.9 K/mm3 (4.4-11.0)
[2017-11-04 18:34] LABS: POSITIVE COUNT NO; POSITIVE DIFFERENTIAL NO; POSITIVE MORPHOLOGY NO
[2017-11-04 18:48] LABS: ALB/GLOB Ratio 1.2 RATIO (0.9-2.4); AST(SGOT) 12 U/L (15-37); Alanine Aminotransfer ALT/SGPT 25 U/L (13-56); Albumin, Serum 4.1 g/dL (3.2-5.0); Alkaline Phosphatase 77 U/L (45-117); Anion Gap 8 (5-15); BUN 7 mg/dL (7-18); BUN/Creat Ratio 10.6 RATIO (10-20); Calcium,Total 8.8 mg/dL (8.5-10.1); Chloride 107 mmol/L (98-107); Creatinine, Serum 0.66 mg/dL (0.55-1.02); EST Glomerular Filtration Rate 103 mL/min (>60); Est Glom Filt Rate - Afr Amer 125 mL/min (>60); Estimated Creatinine Clearance 122.84 ml/min; Globulin 3.4 g/dL (2.2-4.2); Glucose 86 mg/dL (74-106); Potassium 3.3 mmol/L (3.5-5.1); Protein, Total 7.5 g/dL (6.4-8.2); Sodium Level 142 mmol/L (136-145)
[2017-11-04] MEDS: LORazepam 2 MG/ML Syringe 0.5 MG IV (19:13)
[2017-11-04 20:00] VITALS: BP 123/49; PULSE 89; RESP 18; O2SAT 100
--- NOTE | 2017-11-04 20:35 | ED.VISSUMM ---
- ER Visit Summary Date of Service: 11/04/17 Chief Complaint: Possible seizure History of Present Illness: The patient is a 41 F who presents with a possible seizure that occurred today. Patient states she was recently diagnosed with functional movement disorder at the [facility]. Patient states that she has been having persistent tremors of her upper extremities. Patient states this is worse today. Patient states that she was looking at her ceiling fan and thinks she passed out. Patient states this happened again later in the day and her son was with her. Patient states her son told her that she was shaking. Patient states that this only lasted less than a minute. Patient denies any fevers or chills. Patient denies any headaches. Patient denies any chest pain or shortness of breath. Patient denies any nausea or vomiting. Physical Examination: Vital signs are stable. Patient is afebrile. Patient is in no acute distress. Oral mucosa is pink and moist. Neck is supple. There is no JVD noted. Heart was regular rate and rhythm. Lungs are clear and equal bilateral. Abdomen is soft and nontender. Cranial nerves II through XII are intact. There are no focal motor or sensory deficits noted. There are tremors of the upper extremities bilaterally. The remaining physical exam is within normal limits. Test Results: CBC and comprehensive metabolic profile was obtained and was normal. CT scan of the brain was obtained and was normal. Emergency Department Course and Treatment: Patient was given a dose of Ativan here. Patient felt better on reevaluation. Patient had a another episode of generalized shaking. Staff did not notice any loss of consciousness. Staff states the patient did not have any postictal state. Patient was awake and alert when I went into the room to check the patient after the possible seizure. Patient had information from her neurologist at the [facility] on functional movement disorder. This paper stated that nonepileptic seizures could be part of this disorder. I do not feel that the patient needs antiepileptic medication at this time. Patient was instructed to follow-up with her neurologist in 3-5 days. Patient and family understood and were agreeable with the plan. All questions were answered. Disposition: Discharged home Impression: Functional movement disorder, seizure-like activity This note was generated with tibditation software. It may contain incorrect words, spelling, and punctuation that were not noted in review of the chart prior to signing ED Disposition - Plan for ED Patient: Disposition: Home or Assisted Living Chief Complaint: Seizure Diagnosis: Functional movement disorder Instructions: ED Seizure New Onset Unk Cause Referrals: Care Physician,No Primary [Primary Care Provider] - Additional Instructions: Continue your medications as previously prescribed. Follow-up with your neurologist at the [facility] in 2-3 days. Return if worse in any way.
[2017-11-04 20:51] VITALS: BP 116/80; PULSE 86; RESP 18; O2SAT 97
== END 2017-11-04 20:51 | disposition home or self-care (01) ==
PROVIDERS: Emergency Provider Emergency Medicine
DX: R25.1 Tremor, unspecified (principal); F17.200 Nicotine dependence, unspecified, uncomplicated
CPT/HCPCS: 70450; 80053; 85025; 96374; 99283; A4216

== ENCOUNTER 2017-11-05 00:51 | Emergency (ER) | payer BC, SELFPAY ==
[2017-11-05 00:52] VITALS: BP 129/73; PULSE 102; RESP 18; TEMP 36.8; O2SAT 99; BMI 28.5
--- NOTE | 2017-11-05 01:23 | ED.DCSUM_ITS ---
- ER Visit Summary Date of Service: 11/05/17 Chief Complaint: [] Seizure reported History of Present Illness: The patient is a 41 F [] reported seizure happened 2 hours ago lasted 1. Her stated she was staring off and then had whole -body shakiness while she was sitting down that lasted a minute. This is the fourth time happened today. Seen in the emergency department earlier and had normal labs and a CAT scan. She was recently diagnosed with a functional movement disorder. She is on no medications for this. She sees a neurologist at the [facility]. She has never had seizure activity before. No new medications. Denies illegal drug use. No symptoms currently. Physical Examination: [] Vital signs reviewed General: Well-nourished well-developed Head: Normocephalic atraumatic Eyes: Pupils equal round and reactive to light extraocular movements intact ENT: TMs clear no hemotympanum no trauma Neck: Nontender full range of motion Cardiovascular: Regular rate rhythm no murmurs normal S1-S2 Respiratory: No distress clear to auscultation bilaterally chest nontender Abdomen: Soft nontender nondistended normal bowel sounds no masses Back: Nontender no CVA tenderness Extremities: Nontender active range of motion ?4 extremities no trauma Skin: Normal color no trauma Neuro: Muscle tremors of the upper extremities bilateral Test Results: [] Emergency Department Course and Treatment: [] Jose with the neurologist [employer] space salesperson for Dr. Ferrell at the [facility]. At this time we will hold off on placing her on antiepileptics. These are very short episodes. She will recheck out to her neurologist tomorrow for further evaluation. Treatment Plan: [] Disposition: [] Impression: [] Seizure-like activity This note was generated with [employer] dictation software. It may contain incorrect words, spelling, and punctuation that were not noted in review of the chart prior to signing ED Disposition - Plan for ED Patient: Chief Complaint: Seizure Referrals: Care Physician,No Primary [NON-STAFF] -
--- NOTE | 2017-11-05 01:46 | ED.DEP ---
ED Disposition - Plan for ED Patient: Disposition: Home or Assisted Living Chief Complaint: Seizure Instructions: ED Seizure Recurrent Referrals: Care Physician,No Primary [NON-STAFF] - Doctor,Your [STAFF PHYSICIAN] -
[2017-11-05 02:07] VITALS: BP 127/46; PULSE 78; RESP 18; O2SAT 100
--- NOTE | 2017-11-05 02:08 | ED.RN ---
THIS NURSE REVIEWED D/C INSTRUCTIONS WITH PT. PT VERBALIZED UNDERSTANDING OF INSTRUCTIONS. PT DENIES FURTHER NEEDS OR QUESTIONS AT THIS TIME. PT AMBULATES FROM ROOM ON OWN WITHOUT ASSISTANCE FROM STAFF
== END 2017-11-05 02:09 | disposition home or self-care (01) ==
PROVIDERS: Emergency Provider Emergency Medicine; Family Provider Nurse Practitioner Family; PCP Nurse Practitioner Family
DX: R56.9 Unspecified convulsions (principal); G25.9 Extrapyramidal and movement disorder, unspecified; Z90.49 Acquired absence of other specified parts of digestive tract
CPT/HCPCS: 99282

== ENCOUNTER 2017-11-08 23:38 | Emergency (ER) | payer BC, SELFPAY ==
[2017-11-08 23:38] VITALS: BP 130/56; PULSE 117; RESP 22; TEMP 36.4; O2SAT 99; BMI 29.4
[2017-11-08] MEDS: LORazepam 2 MG/ML Syringe 1 MG IV (23:45)
--- NOTE | 2017-11-08 23:47 | ED.VISSUMM ---
- ER Visit Summary Date of Service: 11/08/17 Chief Complaint: Shaking History of Present Illness: The patient is a 41 F past medical history of familial motor disorder according the patient received a diagnosis from the [facility]. She has no history of seizures. She states that she has not been well for the last 4 months. Since Thursday she has had these episodes of shaking. Was seen in the ER had negative laboratories and a negative CT of the brain. Family called [facility] and she was transported in. During these episodes she has purposeful shaking of her upper and lower extremities. She is awake alert and talking the entire time. And stops them on command. There is no postictal phase. Physical Examination: Anxious middle-aged female. Vital signs are stable and afebrile. H EENT exam unremarkable. Atraumatic. Moist mucous membranes. Pupils round reactive light. No facial droop. Normal speech. Neck nontender. Lungs clear to auscultation bilaterally. Heart regular rhythm rate about 115 no murmur. Chest wall nontender. Abdomen soft nontender. Pelvic girdle intact. Moving all 4 extremities. Neurovascularly intact. No deformity. She shakes both her upper and lower extremities appears to be purposeful. When you ask her to raise her arm or leg she immediately stops and follows the command. She has normal equal symmetrical healthcare receptionist strength. Dorsi and plantar flexion are intact. Neurologically she is anxious. However she is awake and alert. Has no focal motor or sensory deficits. She intermittently shakes but stops when you ask to follow specific commands. Test Results: Patient had prior workups. 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 I do not feel that these are seizures. I do not feel that she needs any further testing. Emergency Department Course and Treatment: IV Ativan. Treatment Plan: Patient will be discharged home to follow-up with her primary care physician. I discussed this with the patient's at bedside. He is very frustrated. He wants me to put her on medication explaining of his nonspecific medication for me to put her on. She was diagnosed at the [facility] and they did not start on any medication. They are discussing about starting counseling with her and retraining her brain. Disposition: Discharge Impression: Acute pseudoseizures (nonconvulsive seizures) This note was generated with [employer] software. It may contain incorrect words, spelling, and punctuation that were not noted in review of the chart prior to signing ED Disposition - Plan for ED Patient: Disposition: Home or Assisted Living Chief Complaint: Seizure Referrals: Laura Valdovinos NP-C [Primary Care Provider] - Additional Instructions: Call follow-up with your doctor. These episodes are not true seizures.
--- NOTE | 2017-11-08 23:51 | ED.DCSUM_ITS ---
- ER Visit Summary Date of Service: 11/08/17 Chief Complaint: Shaking History of Present Illness: The patient is a 41 F past medical history of familial motor disorder according the patient received a diagnosis from the [facility]. She has no history of seizures. She states that she has not been well for the last 4 months. Since Thursday she has had these episodes of shaking. Was seen in the ER had negative laboratories and a negative CT of the brain. Family called [facility] and she was transported in. During these episodes she has purposeful shaking of her upper and lower extremities. She is awake alert and talking the entire time. And stops them on command. There is no postictal phase. Physical Examination: Anxious middle-aged female. Vital signs are stable and afebrile. H EENT exam unremarkable. Atraumatic. Moist mucous membranes. Pupils round reactive light. No facial droop. Normal speech. Neck nontender. Lungs clear to auscultation bilaterally. Heart regular rhythm rate about 115 no murmur. Chest wall nontender. Abdomen soft nontender. Pelvic girdle intact. Moving all 4 extremities. Neurovascularly intact. No deformity. She shakes both her upper and lower extremities appears to be purposeful. When you ask her to raise her arm or leg she immediately stops and follows the command. She has normal equal symmetrical managing editor strength. Dorsi and plantar flexion are intact. Neurologically she is anxious. However she is awake and alert. Has no focal motor or sensory deficits. She intermittently shakes but stops when you ask to follow specific commands. Test Results: Patient had prior workups. 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 I do not feel that these are seizures. I do not feel that she needs any further testing. Emergency Department Course and Treatment: IV Ativan. Treatment Plan: Patient will be discharged home to follow-up with her primary care physician. I discussed this with the patient's at bedside. He is very frustrated. He wants me to put her on medication explaining of his nonspecific medication for me to put her on. She was diagnosed at the [facility] and they did not start on any medication. They are discussing about starting counseling with her and retraining her brain. Disposition: Discharge Impression: Acute pseudoseizures (nonconvulsive seizures) This note was generated with [employer] software. It may contain incorrect words, spelling, and punctuation that were not noted in review of the chart prior to signing ED Disposition - Plan for ED Patient: Disposition: Home or Assisted Living Chief Complaint: Seizure Referrals: Laura Valdovinos NP-C [Primary Care Provider] - Additional Instructions: Call follow-up with your doctor. These episodes are not true seizures.
--- NOTE | 2017-11-08 23:51 | ED.DEP ---
ED Disposition - Plan for ED Patient: Disposition: Home or Assisted Living Chief Complaint: Seizure Referrals: Laura Valdovinos, AL-C [Primary Care Provider] - Additional Instructions: Call follow-up with your doctor. These episodes are not true seizures.
[2017-11-09 00:18] VITALS: BP 130/56; PULSE 117; RESP 22; O2SAT 99
== END 2017-11-09 00:23 | disposition home or self-care (01) ==
LOC: ED 11-09 00:05
PROVIDERS: Emergency Provider Emergency Medicine; Family Provider Nurse Practitioner Family; PCP Nurse Practitioner Family
DX: G40.89 Other seizures (principal)
CPT/HCPCS: 96374; 99285; J7030; A4216